=== PATIENT | female | born 1975 | race Caucasian/White ===

== ENCOUNTER → 2017-05-15 | Outpatient (CLI) | payer OTHER ==
[~2017-05-15] MED LIST: GADOBUTROL 10 ML VIAL IVP ONE
== END ==
LOC: FIMAGING 12:55
PROVIDERS: ATTEND Physician Assistant Medical
DX: G35 Multiple sclerosis (principal)
CPT/HCPCS: 70553; A9585

== ENCOUNTER 2017-08-19 09:32 | Emergency (ER) | payer OTHER ==
--- NOTE | 2017-08-19 09:41 | CPEKG ---
Heart Rate: 80 RR Interval: 750 P-R Interval: 156 QRSD Interval: 88 QT Interval: 416 QTC Interval: 480 P [place]: 77 QRS [place]: 67 T Wave [place]: 45 EKG Severity - NORMAL ECG - EKG Impression: SINUS RHYTHM Electronically Signed By: Joce Marshall 19-Aug-2017 09:56:35
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
[2017-08-19] MEDS ORDERED: NS 1,000 ML IV SCH (10:00)
[2017-08-19 10:06] LABS: % IMMATURE GRANULYOCYTES 0.3 % (0.0-1.1); ABSOLUTE IMMATURE GRANULOCYTES 0.03 10^3/uL (0.00-0.10); ADD DIFF? NO; ADD MORPH? NO; ADD SCAN? NO; ATYPICAL LYMPHOCYTE FLAG 0 (0-99); FRAGMENT RBC FLAG 0 (0-99); HEMATOCRIT 38.6 % (38.0-47.0); HEMOGLOBIN 13.5 g/dL (12.6-16.3); LEFT SHIFT FLG 0 (0-99); LIPEMIA HEMOLYSIS FLAG 90 (0-99); MEAN CELL HEMOGLOBIN 29.9 pg (27.9-34.1); MEAN CELL VOLUME 85.4 fL (81.5-99.8); MEAN PLATELET VOLUME 10.4 fL (8.7-11.7); PLATELET CLUMPS FLAG 0 (0-99); PLATELET COUNT 284 10^3/uL (150-400); RED BLOOD CELL COUNT 4.52 10^6/uL (4.18-5.33); RED CELL DISTRIBUTION WIDTH 13.8 % (11.5-15.2)
[2017-08-19] MEDS ORDERED: NS 1,000 ML IV ONE ×2 (10:09→11:11)
[2017-08-19 10:21] LABS: ANION GAP 13 mEq/L (8-16); CALCIUM 9.7 mg/dL (8.5-10.4); CARBON DIOXIDE 29 mEq/l (22-31); CHLORIDE 101 mEq/L (97-110); CREATININE 0.8 mg/dL (0.6-1.0); ETHANOL SERUM < 10 mg/dL (0-10); GLOMERULAR FILTRATION RATE > 60; GLUCOSE 92 mg/dL (70-100); POTASSIUM 3.7 mEq/L (3.5-5.2); SALICYLATE < 1.0 mg/dL (2.0-20.0); SODIUM 143 mEq/L (134-144)
[2017-08-19] MEDS ORDERED: BACLOFEN 20 MG TAB PO ONE (22:56)
[2017-08-19] MEDS ORDERED: GABAPENTIN 300 MG CAP PO ONE (22:56)
[2017-08-20 04:37] VITALS: RESP 16
[2017-08-20 15:03] VITALS: BP 95/56; PULSE 68; TEMP 98.6; O2SAT 94
== END 2017-08-20 15:00 | disposition short-term general hospital (02) ==
LOC: EDUNIT#
DX: T42.4X2A Poisoning by benzodiazepines, intentional self-harm, initial encounter (principal); E86.9 Volume depletion, unspecified
CPT/HCPCS: 80305; G0480